=== PATIENT | female | born 2000 | race Caucasian/White ===

== ENCOUNTER 2021-02-17 07:04 | Emergency (ER) | payer OTHER, SELFPAY ==
--- NOTE | ~2021-02-17 | US_ITS ---
EXAMINATION: ULTRASOUND PELVIS AND TRANSVAGINAL, ULTRASOUND PELVIC OVARIAN DOPPLER CLINICAL INFORMATION: Diffuse abdominal pain. Complex cyst seen in the right ovary. COMPARISON: Previous CT of the abdomen and pelvis from earlier the same day TECHNIQUE: Transabdominal and transvaginal pelvic ultrasound was performed. Transvaginal exam was performed for better visualization of the uterus and ovaries. FINDINGS: The uterus is retroverted and measures 8.5 x 4.6 x 5.9 cm in dimension. No focal uterine lesion is seen. Endometrial thickness is normal measuring 0.4 cm. The right ovary measures 3.7 x 2.5 x 2.7 cm, volume 13.6 cm. No cyst or focal lesion in the right ovary is seen. The left ovary measures 2.8 x 1.9 x 1.9 cm, volume 5.2 mL. Arterial and venous flow is documented to both ovaries. There is no evidence of torsion. There is a small amount of fluid in the pelvis. There are prominent pelvic vessels questionable for pelvic congestion. US/US pelvic and transvaginal IMPRESSION: Normal-appearing right ovary. No cyst seen. No evidence of torsion. Small amount of fluid in the pelvis. Prominent pelvic vessels questionable for pelvic congestion.
--- NOTE | ~2021-02-17 | US_ITS ---
EXAMINATION: ULTRASOUND PELVIS AND TRANSVAGINAL, ULTRASOUND PELVIC OVARIAN DOPPLER CLINICAL INFORMATION: Diffuse abdominal pain. Complex cyst seen in the right ovary. COMPARISON: Previous CT of the abdomen and pelvis from earlier the same day TECHNIQUE: Transabdominal and transvaginal pelvic ultrasound was performed. Transvaginal exam was performed for better visualization of the uterus and ovaries. FINDINGS: The uterus is retroverted and measures 8.5 x 4.6 x 5.9 cm in dimension. No focal uterine lesion is seen. Endometrial thickness is normal measuring 0.4 cm. The right ovary measures 3.7 x 2.5 x 2.7 cm, volume 13.6 cm. No cyst or focal lesion in the right ovary is seen. The left ovary measures 2.8 x 1.9 x 1.9 cm, volume 5.2 mL. Arterial and venous flow is documented to both ovaries. There is no evidence of torsion. There is a small amount of fluid in the pelvis. There are prominent pelvic vessels questionable for pelvic congestion. US/US transvaginal IMPRESSION: Normal-appearing right ovary. No cyst seen. No evidence of torsion. Small amount of fluid in the pelvis. Prominent pelvic vessels questionable for pelvic congestion.
--- NOTE | ~2021-02-17 | US_ITS ---
EXAMINATION: ULTRASOUND PELVIS AND TRANSVAGINAL, ULTRASOUND PELVIC OVARIAN DOPPLER CLINICAL INFORMATION: Diffuse abdominal pain. Complex cyst seen in the right ovary. COMPARISON: Previous CT of the abdomen and pelvis from earlier the same day TECHNIQUE: Transabdominal and transvaginal pelvic ultrasound was performed. Transvaginal exam was performed for better visualization of the uterus and ovaries. FINDINGS: The uterus is retroverted and measures 8.5 x 4.6 x 5.9 cm in dimension. No focal uterine lesion is seen. Endometrial thickness is normal measuring 0.4 cm. The right ovary measures 3.7 x 2.5 x 2.7 cm, volume 13.6 cm. No cyst or focal lesion in the right ovary is seen. The left ovary measures 2.8 x 1.9 x 1.9 cm, volume 5.2 mL. Arterial and venous flow is documented to both ovaries. There is no evidence of torsion. There is a small amount of fluid in the pelvis. There are prominent pelvic vessels questionable for pelvic congestion. US/US pelvic ovarian doppler IMPRESSION: Normal-appearing right ovary. No cyst seen. No evidence of torsion. Small amount of fluid in the pelvis. Prominent pelvic vessels questionable for pelvic congestion.
--- NOTE | ~2021-02-17 | CT_ITS ---
EXAMINATION: CT ABDOMEN AND PELVIS WITH CONTRAST CLINICAL INFORMATION: Diffuse abdominal pain COMPARISON: None TECHNIQUE: Multidetector volumetric images were obtained from the superior aspect of the liver through the pubic symphysis following administration 85 mL of Omnipaque 350 intravenous contrast. Sagittal and coronal reformatted images were obtained on the technologist's workstation. Oral contrast: Yes This CT examination was performed using dose optimization techniques as appropriate, variously including the following: *Automated exposure control *Adjustment of mA and/or kV according to patient size (this includes techniques or standardized protocols for targeted exams where dose is matched to indication/reason for exam; i.e. extremities or head) *Use of iterative reconstruction technique DLP: 310 mGy-cm FINDINGS: LUNG BASES: The visualized lung bases are unremarkable. LIVER, GALLBLADDER, AND BILIARY TREE: The liver is normal in size, shape, and attenuation. No focal hepatic lesion or biliary ductal dilatation is present. The gallbladder is unremarkable with no evidence of radiopaque gallstones, gallbladder wall thickening, or obvious pericholecystic inflammatory changes. PANCREAS: Unremarkable. SPLEEN: Unremarkable. ADRENAL GLANDS: Unremarkable. KIDNEYS AND URETERS: The kidneys are normal in size, shape, and attenuation. No hydronephrosis, hydroureter, or calculi seen. No perinephric stranding. BLADDER: Unremarkable. GASTROINTESTINAL TRACT: There is question of mild wall thickening of the right of colon and stranding of the surrounding fat. Appearances of questionable for mild colitis. The small and large bowel is otherwise unremarkable. The appendix is unremarkable. The stomach is unremarkable. ABDOMINAL WALL: No significant hernia is appreciated. LYMPH NODES: Normal. VASCULAR: Unremarkable. PELVIC VISCERA: There are prominent pelvic vessels questionable for pelvic congestion. There is a 3.4 x 2.6 x 3.4 cm complex right ovarian cyst. The uterus and left adnexa are unremarkable. There is trace ascites in the pelvis. OSSEOUS STRUCTURES: Unremarkable. CT/CT abdomen pelvis w con IMPRESSION: Question mild colitis of the right colon. 3.4 x 2.6 x 3.4 cm complex right ovarian cyst and trace fluid in the pelvis. Prominent pelvic vessels questionable for pelvic congestion.
[2021-02-17 07:19] VITALS: BP 129/85; BP 139/94; PULSE 105; PULSE 82; RESP 17; TEMP 36.9; O2SAT 100; O2SAT 98; BMI 19.5
[2021-02-17 07:49] LABS: Appearance Urine CLEAR; Color Urine YELLOW; Glucose Urine UA NEG (NEG); Leukocyte Esterase Urine NEG (NEG); Nitrite Urine NEG (NEG); Urine Blood NEG (NEG); Urine Ketones 5 MG/DL (NEG); Urine Protein NEG (NEG-TRACE)
[2021-02-17 07:51] LABS: UPreg QC Valid YES; Urine Pregnancy NEGATIVE (NEGATIVE)
--- NOTE | 2021-02-17 08:18 | ED.ABDPAIN ---
HPI - Abdominal Pain General Chief Complaint: Abdominal Pain Stated Complaint: abd pain Time Seen by Provider: 02/17/21 08:00 Related Data Previous Rx's Medication Instructions Recorded ondansetron 4 mg disintegrating 4 mg PO TID PRN 5 Days #10 tab 02/17/21 tablet Allergies Allergy/AdvReac Type Severity Reaction Status Date / Time fluoxetine [From Prozac] Allergy Unknown Verified 02/17/21 08:12 haloperidol [From Haldol] Allergy Unknown Verified 02/17/21 08:12 prochlorperazine Allergy Unknown Verified 02/17/21 08:12 [From Compazine] risperidone [From Risperdal] Allergy Unknown Verified 02/17/21 08:12 shrimp Allergy Unknown Verified 02/17/21 08:12 Physical Exam Vital Signs: Vital Signs: Last Vital Signs Temp 98.8 F 02/17/21 10:18 Pulse 78 02/17/21 10:18 Resp 18 02/17/21 10:18 BP 123/89 02/17/21 10:18 Pulse Ox 99 02/17/21 10:18 Body Mass Index 19.5 MDM - Abdominal Pain MDM Narrative Medical decision making narrative: Patient's white count is normal. CT scan of the abdomen showed no evidence of obstruction, abscess, perforation question enlarged right ovary. Ultrasound was done. There was no evidence of torsion. The ovary appears normal. Patient is in stable condition with discharge. Differential Diagnosis Differential diagnosis: Likely abdominal pain Medical Records Attestation: I reviewed the patient's medical records. Lab Data Attestation: I reviewed the patient's lab results. Result diagrams: 02/17/21 08:13 02/17/21 08:13 Labs: Lab Results 02/17/21 02/17/21 02/17/21 Range/Units 07:41 07:42 08:13 WBC 6.8 (4.8-10.8) X10*3/uL RBC 4.84 (4.20-5.50) X10*6/uL Hgb 13.4 (12.0-16.0) g/dl Hct 40.5 (37-47) % MCV 83.7 (80-98) fL MCH 27.7 (27.0-33.0) pg MCHC 33.1 (31.0-35.0) g/dl RDW 13.4 (11.0-16.0) % Plt Count 168 (160-400) X10*3/uL MPV 11.3 (9.4-12.3) fL Immature Gran % (Auto) 0.3 (0.0-0.4) % Neut % (Auto) 77.2 H (45-73) % Lymph % (Auto) 16.2 L (20-40) % [place] % (Auto) 5.3 (2-11) % Eos % (Auto) 0.6 (0-4) % Baso % (Auto) 0.4 (0-2) % Lymph # (Auto) 1.1 L (1.2-4.9) X10*3/uL [place] # (Auto) 0.4 (0.1-1.2) X10*3/uL Eos # (Auto) 0.0 (0.0-0.4) X10*3/uL Baso # (Auto) 0.0 (0.0-0.2) X10*3/uL Abs Immat Gran (auto) 0.02 (0.00-0.03) X10*3/uL Absolute Neuts (auto) 5.3 (2.0-8.3) X10*3/uL Absolute Nucleated RBC 0.000 (0.0-0.012) X10*3/uL Nucleated RBC % (auto) 0.0 (0.0-0.2) /100WBC Sodium (135-145) mmol/L Potassium (3.3-5.1) mmol/L Chloride (96-108) mmol/L Carbon Dioxide (22-29) mmol/L Anion Gap (12-20) BUN (9-16) mg/dL Creatinine (0.5-1.4) mg/dL Estim Creat Clear Calc Estimated GFR Random Glucose (60-115) mg/dL Calcium (8.4-10.2) mg/dL Total Bilirubin (0.0-1.0) mg/dL Direct Bilirubin (0.0-0.5) mg/dL AST (5-31) U/L ALT (0-31) U/L Alkaline Phosphatase (39-117) U/L Total Protein (6.5-8.0) g/dL Albumin (3.5-5.0) g/dL Urine Color YELLOW Urine Appearance CLEAR Urine pH 8.0 (5.0-8.0) Ur Specific [place] 1.010 (1.005-1.025) Urine Protein NEG (NEG-TRACE) MG/DL Urine Glucose (UA) NEG (NEG) MG/DL Urine Ketones 5 (NEG) MG/DL Urine Blood NEG (NEG) Urine Nitrite NEG (NEG) Ur Leukocyte Esterase NEG (NEG) Urine Test NEGATIVE (NEGATIVE) 02/17/21 Range/Units 08:13 WBC (4.8-10.8) X10*3/uL RBC (4.20-5.50) X10*6/uL Hgb (12.0-16.0) g/dl Hct (37-47) % MCV (80-98) fL MCH (27.0-33.0) pg MCHC (31.0-35.0) g/dl RDW (11.0-16.0) % Plt Count (160-400) X10*3/uL MPV (9.4-12.3) fL Immature Gran % (Auto) (0.0-0.4) % Neut % (Auto) (45-73) % Lymph % (Auto) (20-40) % [place] % (Auto) (2-11) % Eos % (Auto) (0-4) % Baso % (Auto) (0-2) % Lymph # (Auto) (1.2-4.9) X10*3/uL [place] # (Auto) (0.1-1.2) X10*3/uL Eos # (Auto) (0.0-0.4) X10*3/uL Baso # (Auto) (0.0-0.2) X10*3/uL Abs Immat Gran (auto) (0.00-0.03) X10*3/uL Absolute Neuts (auto) (2.0-8.3) X10*3/uL Absolute Nucleated RBC (0.0-0.012) X10*3/uL Nucleated RBC % (auto) (0.0-0.2) /100WBC Sodium 141 (135-145) mmol/L Potassium 4.2 (3.3-5.1) mmol/L Chloride 110 H (96-108) mmol/L Carbon Dioxide 23 (22-29) mmol/L Anion Gap 12 (12-20) BUN 9 (9-16) mg/dL Creatinine 0.75 (0.5-1.4) mg/dL Estim Creat Clear Calc 91.9 Estimated GFR > 60 Random Glucose 100 (60-115) mg/dL Calcium 9.3 (8.4-10.2) mg/dL Total Bilirubin 0.7 (0.0-1.0) mg/dL Direct Bilirubin 0.3 (0.0-0.5) mg/dL AST 15 (5-31) U/L ALT 17 (0-31) U/L Alkaline Phosphatase 45 (39-117) U/L Total Protein 7.3 (6.5-8.0) g/dL Albumin 4.5 (3.5-5.0) g/dL Urine Color Urine Appearance Urine pH (5.0-8.0) Ur Specific [place] (1.005-1.025) Urine Protein (NEG-TRACE) MG/DL Urine Glucose (UA) (NEG) MG/DL Urine Ketones (NEG) MG/DL Urine Blood (NEG) Urine Nitrite (NEG) Ur Leukocyte Esterase (NEG) Urine Test (NEGATIVE) Discharge Plan Discharge Clinical Impression: Abdominal pain Patient Disposition: Home, Self-Care Prescriptions: New ondansetron 4 mg tablet,disintegrating 4 mg PO TID PRN (Reason: nausea and vomiting) 5 Days Qty: 10 RF: 0 Referrals: Jaylan Joseph MD [Primary Care Provider] - 2 days [facility] Past Medical History Medical History (Updated 02/17/21 @ 12:29 by Raine Wan MD) Anxiety Bipolar 1 disorder Depression Kidney stones Panic attack Social History Social History Alcohol intake: never Patient Tobacco Use Status: Current everyday Tobacco user Use of substances other than those prescribed or required for medical reasons: No Advance Directives: No Advance Directives Information Provided: Yes Patient : No
[2021-02-17 08:29] LABS: MANUAL DIFF FLAG NO
[2021-02-17 08:34] LABS: Basophils Percent Auto 0.4 % (0-2); Eosinophils Percent Auto 0.6 % (0-4); Hematocrit 40.5 % (37-47); Hemoglobin 13.4 g/dl (12.0-16.0); Imm Gran Abs Auto 0.02 X10*3/uL (0.00-0.03); Imm Gran Pct Auto 0.3 % (0.0-0.4); Lymphocytes Absolute Auto 1.1 X10*3/uL (1.2-4.9); Lymphocytes Percent Auto 16.2 % (20-40); Mean Corpuscular HGB Conc 33.1 g/dl (31.0-35.0); Mean Corpuscular Hemoglobin 27.7 pg (27.0-33.0); Mean Corpuscular Volume 83.7 fL (80-98); Mean Platelet Volume 11.3 fL (9.4-12.3); Monocytes Absolute Auto 0.4 X10*3/uL (0.1-1.2); Monocytes Percent Auto 5.3 % (2-11); Neutrophils Absolute Auto 5.3 X10*3/uL (2.0-8.3); Neutrophils Percent Auto 77.2 % (45-73); Platelet Count 168 X10*3/uL (160-400); Red Blood Count 4.84 X10*6/uL (4.20-5.50); Red Cell Distribution Width 13.4 % (11.0-16.0); White Blood Count 6.8 X10*3/uL (4.8-10.8)
[2021-02-17] MEDS: ondansetron HCL 4 MG/2 ML VIAL IVPUSH (08:44)
[2021-02-17] MEDS: Magnesium Hydrox/Alum Hydrox 30 ML ORAL.SUSP PO (08:44)
[2021-02-17] MEDS: 0.9 % Sodium Chloride 1,000 ML 999 ML IV (08:45)
[2021-02-17 08:46] LABS: Alanine Aminotransferase 17 U/L (0-31); Albumin Level 4.5 g/dL (3.5-5.0); Alkaline Phosphatase 45 U/L (39-117); Anion Gap 12 (12-20); Aspartate Amino Transferase 15 U/L (5-31); Bilirubin Direct 0.3 mg/dL (0.0-0.5); Bilirubin Total 0.7 mg/dL (0.0-1.0); Blood Urea Nitrogen 9 mg/dL (9-16); Calcium 9.3 mg/dL (8.4-10.2); Carbon Dioxide 23 mmol/L (22-29); Chloride 110 mmol/L (96-108); Creatinine Clr Calc Pharmacy 91.9; Estimated Glomerular Filt Rate > 60; Glucose Random 100 mg/dL (60-115); Potassium 4.2 mmol/L (3.3-5.1); Sodium 141 mmol/L (135-145); Total Protein 7.3 g/dL (6.5-8.0)
[2021-02-17] MEDS: iohexoL 350 MG/ML 100 ML INFUS..BTL IV (09:30)
[2021-02-17 10:18] VITALS: BP 123/89; PULSE 78; RESP 18; TEMP 37.1; O2SAT 99
[2021-02-17 12:34] VITALS: BP 146/92; PULSE 86; RESP 18; O2SAT 99
== END 2021-02-17 12:40 | disposition home or self-care (01) ==
PROVIDERS: Emergency Provider Emergency Medicine Emergency Medical Services; PCP Internal Medicine
DX: R10.9 Unspecified abdominal pain (principal)
CPT/HCPCS: 36415; 74177; 76830; 76856; 80048; 80076; 81003; 81025; 85025; 93975; 96361; 96374; 99284; J2405; Q9967